=== PATIENT | female | born 1960 | race Caucasian/White ===

== ENCOUNTER 2017-11-15 19:42 | Emergency (ER) | payer MEDICAID ==
[~2017-11-15] VITALS: Ht 162.6 cm; Wt 60.8 kg
[2017-11-15 19:51] VITALS: Ht 162.6 cm; Wt 60.8 kg
[2017-11-15 22:26] VITALS: BP 106/73
== END 2017-11-15 22:26 | disposition home or self-care (01) ==
LOC: ED 19:42
DX: J40 Bronchitis, not specified as acute or chronic (principal); F17.210 Nicotine dependence, cigarettes, uncomplicated; R03.0 Elevated blood-pressure reading, without diagnosis of hypertension; Z71.6 Tobacco abuse counseling
CPT/HCPCS: 99406; J7512; J7613; J7644

== ENCOUNTER 2018-06-07 20:32 | Emergency (ER) | payer SELFPAY ==
[~2018-06-07] VITALS: Ht 162.6 cm; Wt 62.1 kg
[2018-06-07 20:45] VITALS: Ht 162.6 cm; Wt 62.1 kg
[2018-06-07 21:56] VITALS: BP 125/78
== END 2018-06-07 21:56 | disposition home or self-care (01) ==
LOC: ED 20:32
DX: R06.02 Shortness of breath (principal); R05 Cough; Z90.89 Acquired absence of other organs; Z98.890 Other specified postprocedural states
CPT/HCPCS: J7512; J7613; J7644